=== PATIENT | male | born 1930 | race Caucasian/White ===

== ENCOUNTER 2017-06-01 11:19 | Inpatient (IN) ==
--- NOTE | 2017-05-31 16:59 | Discharge Summary ---
<Trixie Grady E - Last Filed: 05/31/17 16:55> Date of Encounter: 05/31/17 - Discharge Diagnosis (1) Rotator cuff arthropathy of left shoulder Priority: Primary Status: Chronic (2) HLD (hyperlipidemia) Priority: Secondary Status: Chronic Qualifiers: Hyperlipidemia type: unspecified Qualified Code(s): E78.5 - Hyperlipidemia , unspecified (3) HTN (hypertension) Priority: Secondary Status: Chronic Qualifiers: Hypertension type: unspecified Qualified Code(s): I10 - Essential (primary ) hypertension (4) COPD (chronic obstructive pulmonary disease) Priority: Secondary Status: Chronic Qualifiers: COPD type: unspecified COPD Qualified Code(s): J44.9 - Chronic obstructive pulmonary disease, unspecified (5) Status post aortic valve replacement Priority: Secondary Status: Chronic (6) Anemia Priority: Secondary Status: Chronic Qualifiers: Anemia type: unspecified type Qualified Code(s): D64.9 - Anemia, unspecified (7) GERD (gastroesophageal reflux disease) Priority: Secondary Status: Chronic Qualifiers: Esophagitis presence: esophagitis presence not specified Qualified Code(s) : K21.9 - Gastro-esophageal reflux disease without esophagitis (8) 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 [Rx] OxyCODONE Immed Rel [Roxicodone 5 MG] 5 mg PO Q6HR PRN 7 Days #28 tablet [Rx] Albuterol Sulfate [Ventolin Hfa] 2 puff IH Q4-6H PRN 06/01/17 [History] Amlodipine Besylate 2.5 mg PO DAILY 06/01/17 [History] Aspirin 81 mg PO DAILY 06/01/17 [History] Atorvastatin [Lipitor] 40 mg PO HS 06/01/17 [History] Doxazosin [Cardura] 4 mg PO HS 06/01/17 [History] Finasteride [Proscar] 5 mg PO DAILY 06/01/17 [History] Ibuprofen [Motrin] 200 - 400 mg PO Q4HR PRN 06/01/17 [History] Latanoprost [Xalatan] 1 drop OP HS 06/01/17 [History] Allergies/Adverse Reactions: 3 Allergy/AdvReac Type Severity Reaction Status Date / Time diphenhydramine Allergy Hives Verified 06/01/17 11:59 [From Benadryl] naproxen [From Aleve] Allergy Hives Verified 06/01/17 11:59 Penicillins Allergy Hives Verified 06/01/17 11:59 red dye Allergy Hives Verified 06/01/17 11:59 Primary care physician: Joanne Collier, - Patient Status Disposition: Home, Self-Care Condition: Good - Discharge Instructions Follow Up With: Joanne Collier MD [Primary Care Provider] - - Hospital Course Hospital course: Mr. Cochran is a 87 year old male - Time Spent with Patient Total time spent providing and/or coordinating discharge services: <Estuardo Prado - Last Filed: 06/02/17 07:15> Date of Encounter: 06/02/17 Time of Encounter: 07:14 - Discharge Diagnosis (1) Status post reverse total replacement of left shoulder Priority: Primary Status: Acute (2) Rotator cuff arthropathy of left shoulder Priority: Primary Status: Chronic (3) HLD (hyperlipidemia) Priority: Secondary Status: Chronic Qualifiers: Hyperlipidemia type: unspecified Qualified Code(s): E78.5 - Hyperlipidemia , unspecified (4) HTN (hypertension) Priority: Secondary Status: Chronic Qualifiers: Hypertension type: unspecified Qualified Code(s): I10 - Essential (primary ) hypertension (5) COPD (chronic obstructive pulmonary disease) Priority: Secondary Status: Chronic Qualifiers: COPD type: unspecified COPD Qualified Code(s): J44.9 - Chronic obstructive pulmonary disease, unspecified (6) Status post aortic valve replacement Priority: Secondary Status: Chronic (7) Anemia Priority: Secondary Status: Chronic Qualifiers: Anemia type: unspecified type Qualified Code(s): D64.9 - Anemia, unspecified (8) GERD (gastroesophageal reflux disease) Priority: Secondary Status: Chronic Qualifiers: Esophagitis presence: esophagitis presence not specified Qualified Code(s) : K21.9 - Gastro-esophageal reflux disease without esophagitis (9) 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 Cochran is a 87 year old male Status post left total shoulder replacement reverse The patient had an uneventful postoperative course. They received antibiotics and physical therapy and were discharged in stable condition. There will follow -up in the office in 2 weeks. - Time Spent with Patient Total time spent providing and/or coordinating discharge services:
--- NOTE | 2017-05-31 20:56 | Physician Discharge Referral ---
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 For more information, call the [place] Tobacco Quit Line at 1-991-OBLC-NOW. - Dressing/Wound Care Site: left shoulder Type of Dressing/Treatments w/Frequency: Opsite placed. Keep dressing intact until first follow up appointment. If > 50% saturated, notify office, remove dressing and place appropriate dressing back in place. Leave Zipline intact. Opsite dressing is water resistant, not water- proof. OK to shower, but do not get dressing wet. - Diet/Nutrition Diet/Nutrition Orders: Regular - Activity Activity Orders: Up ad ramandeep, Ambulate, Chair Activity: List: PT/OT. NWB to affected upper extremity. Follow Shoulder Precautions x 6 weeks. Stay in brace during activity and at night. Remove brace during exercises. ICE and elevate extremity frequently throughout the day. - Services Needed Following services are medically necessary services: Nursing, Home Health Aide, Physical Therapy, Occupational Therapy - Transfer Medications Prescriptions: OxyCODONE Immed Rel [Roxicodone 5 MG] 5 mg PO Q6HR PRN 7 Days #28 tablet PRN Reason: Pain Aspirin Enteric Coated [Aspirin EC] 325 mg PO DAILY 21 Days #21 tablet. Home Medications: levoFLOXacin [Levaquin] 750 mg PO DAILY #10 tablet 12/23/16 [Rx] Aspirin Enteric Coated [Aspirin EC] 325 mg PO DAILY 21 Days #21 tablet. [Rx] OxyCODONE Immed Rel [Roxicodone 5 MG] 5 mg PO Q6HR PRN 7 Days #28 tablet [Rx] Allergies/Adverse Reactions: 3 Allergy/AdvReac Type Severity Reaction Status Date / Time diphenhydramine Allergy Anaphylaxis Verified 12/23/16 12:47 [From Benadryl] Penicillins Allergy Anaphylaxis Verified 12/23/16 12:47 red dye Allergy Anaphylaxis Verified 12/23/16 12:47 Certification: Further, I certify that my clinical findings support that this patient is homebound (i.e. absences from home require considerable and taxing effort and are for medical reasons or cheondoism services or infrequently or short duration when for other reasons) because: Homebound Reason: Post-surgery restriction and or conditions limit ability to leave home Attestation: My signature below is to certify that this patient is under my care and that I, or nurse practitioner, or a physician respiratory equipment assistant working with me, has a face-to- face encounter with this patient.
[2017-06-01] MEDS ORDERED: Albuterol 2.5 MG/3 ML NEBULIZER IH ONE ×2 (11:50→16:34)
[2017-06-01] MEDS ORDERED: Ringers Solution, Lactated 1,000 ML IVC SCH ×3 (12:00→19:40)
[2017-06-01] MEDS ORDERED: Clindamycin 900 MG/50 ML 900 MG/50 ML IV.SOLN IVPB ONE (12:30)
--- NOTE | 2017-06-01 12:44 | History & Physical Report ---
Date of Encounter: 06/01/17 Time of Encounter: 12:43 24 Hour HP Update - Instructions Instructions: If the History and Physical is less than 30 days old and was completed prior to A.M. admission and or procedure and has NOT been updated on calendar day of procedure please complete this update prior to performing procedure. - Update Patient reports changes in Medical Condition: No Changes in examination, assessment, or condition: No Changes in Medication: No Preop tests/diagnostics Reviewed: Yes Surgery Remains Indicated: Yes Consent for Planned Operative Procedure(s) Verified: Yes - Pre-Operative Checklist Preoperative Checklist Indicated: No Prophylactic Antibiotic Ordered: Yes Is VTE Prophylaxis Indicated?: Yes
--- NOTE | 2017-06-01 13:26 | Anesthesia Evaluation PreOp ---
Date of Encounter: 06/01/17 Time of Encounter: 13:24 - Past History Planned Operation: Left Total Shoulder Cardiac History: Hyperlipidemia Pulmonary History: COPD Other Medical History: GERD, Other (Glaucoma) Alcohol Use: none Drug use: none Medications and Allergies Aspirin Enteric Coated [Aspirin EC] 325 mg PO DAILY 21 Days #21 tablet. [Rx] OxyCODONE Immed Rel [Roxicodone 5 MG] 5 mg PO Q6HR PRN 7 Days #28 tablet [Rx] Albuterol Sulfate [Ventolin Hfa] 2 puff IH Q4-6H PRN 06/01/17 [History] Amlodipine Besylate 2.5 mg PO DAILY 06/01/17 [History] Aspirin 81 mg PO DAILY 06/01/17 [History] Atorvastatin [Lipitor] 40 mg PO HS 06/01/17 [History] Doxazosin [Cardura] 4 mg PO HS 06/01/17 [History] Finasteride [Proscar] 5 mg PO DAILY 06/01/17 [History] Ibuprofen [Motrin] 200 - 400 mg PO Q4HR PRN 06/01/17 [History] Latanoprost [Xalatan] 1 drop OP HS 06/01/17 [History] 3 Allergy/AdvReac Type Severity Reaction Status Date / Time diphenhydramine Allergy Hives Verified 06/01/17 11:59 [From Benadryl] naproxen [From Aleve] Allergy Hives Verified 06/01/17 11:59 Penicillins Allergy Hives Verified 06/01/17 11:59 red dye Allergy Hives Verified 06/01/17 11:59 - Meds/Allergy Pre-op Review Medications Reviewed: Yes Allergies Reviewed: Yes Beta Blockers on Current Med List: No Anesthesia Results - Labs Laboratory Tests 05/19/17 05/19/17 05/19/17 14:30 14:30 14:30 WBC 7.4 Hgb 12.7 L Hct 37.0 L Plt Count 244 INR 1.1 Sodium 140 Potassium 4.2 Chloride 107 Carbon Dioxide 28 BUN 15 Creatinine 0.92 - Imaging EKG: report reviewed (SINUS RHYTHM INCOMPLETE RIGHT BUNDLE BRANCH BLOCK) Anesthesia Exam O2 Sat Height 1.8 m Height 1.8 m Weight 93.44 kg Weight 93.44 kg O2 Sat by Pulse Oximetry 98 O2 Sat by Pulse Oximetry 98 Vital Signs Temp Pulse Resp BP Pulse Ox 98.5 F 67 18 173/85 98 06/01/17 11:56 06/01/17 11:56 06/01/17 11:56 06/01/17 11:56 06/01/17 11:56 - HEENT Pupil (Motor): Pupils equal, EOMI - DUST COLLECTOR ATTENDANT LOC: Oriented DUST COLLECTOR ATTENDANT Motor: Normal RUE, Normal LUE, Normal RLE, Normal LLE, Normal Face DUST COLLECTOR ATTENDANT Sensory: Normal: RUE, LUE, RLE, LLE, Face - Cardiac Rhythm: Regular Murmur: None JVD: No Carotid Bruit: No - Pulmonary Breath Sounds: bilateral Clear Respiratory Effort: Symmetrical Anesthesia Assess/Plan ASA Score: 3 Modified Hemanth Scale for Level of Consciousness: Cooperative, oriented, and tranquil Anesthetic Plan: General, Regional Autologous Blood: Yes Monitoring Plan: Standard Monitors Recovery Plan: PACU
[2017-06-01] MEDS ORDERED: Lidocaine -MPF 2% 2 ML VIAL ONE (14:23)
[2017-06-01] MEDS ORDERED: *HR* Propofol 200 MG/20 ML VIAL IVP ONE (14:23)
[2017-06-01] MEDS ORDERED: *HR* Midazolam HCl 2 MG/2 ML VIAL ONE (14:23)
[2017-06-01] MEDS ORDERED: *HR* FentaNYL (PF) 100 MCG/2 ML VIAL ONE (14:23)
[2017-06-01] MEDS ORDERED: Ondansetron 4 MG/2 ML VIAL ONE (14:23)
[2017-06-01] MEDS ORDERED: Dexamethasone 4 MG/ML VIAL ONE (14:23)
[2017-06-01] MEDS ORDERED: *HR* Succinylcholine 200 MG/10 ML VIAL IVP ONE (14:25)
[2017-06-01] MEDS ORDERED: Lidocaine -MPF 4% 5 ML AMPUL ONE (14:25)
[2017-06-01] MEDS ORDERED: ROPIVACAINE HCL/PF 0.5% 30 ML VIAL ONE (15:57)
--- NOTE | 2017-06-01 16:17 | Anesthesia Procedures ---
Date of Encounter: 06/01/17 Time of Encounter: 14:05 Procedures: Anesthesia - Nerve Block Procedure Date: 06/01/17 Time: 14:05 Allergies/Adv Reactions: benadryl, naproxyn PCN Pre-op Diagnosis: Left Shoulder Arthritis Surgical Procedure: Left Total Shoulder Arhtroplasty Checklist: Correct Patient Identifier, Correct procedure, History checked Correct side: Left Blood Thinner: No Monitor Applied: EKG, BP, Pulse Oximetry Supplemental Oxygen via Nasal Cannula (L/min): 2 Sedation: Versed (mg): 2 Sedation: Fentanyl (mcg): 1 Indication: Post Op Analgesia Pre-op Neuro Deficits: No Block Type: Supraclavicular Catheter placed: No Sterile Technique: Yes Ultrasound used: Yes Anatomy identified: Yes Visual spread of Local: Yes Neuro Stimulation: No Blood on Needle Aspiration: No Smooth Injection of Local: Yes Prep: Chlorhexadine Needle: 22 x 50 mm Stimuplex (50 mm echogenic ) Local: Ropivacaine (0.5% ) Volume (cc): 30 Number of Attempts: 1 Complications: None/effective block Vitals: VSS throughout procedure
[2017-06-01] MEDS ORDERED: Ondansetron 4 MG/2 ML VIAL IVP ONE (16:34)
[2017-06-01] MEDS ORDERED: *HR* HYDROmorphone (PF) 1 MG/ML SYRINGE IVP PRN (16:34)
[2017-06-01] MEDS ORDERED: Naloxone 0.4 MG/ML INJ IVP PRN ×2 (16:34→19:40)
[2017-06-01] MEDS ORDERED: EPHEDrine 50 MG/ML VIAL ONE (16:57)
--- NOTE | 2017-06-01 17:06 | Orthopedic Operative Note ---
Date of procedure: 06/01/17 Pre-op diagnosis: Left shoulder cuff tear arthropathy Post-op diagnosis: same Procedure: Procedure: Total Shoulder Replacment Reverse, left Estimated blood loss: 100 cc Hardware: Metal and polyethylene replacement: Arthrex large glenoid baseplate, 2 4.5 screws. 1 6.5 screw, 42+4 glenosphere, 14 humeral stem, poly insert 3 Exam Under anesthesia: Restricted motion in all planes Procedural Notes: Irreparable tear supraspinatus tendon grade 4 arthritic changes humeral head and glenoid socket. Operative procedure: The patient was brought to the operating room and placed on the operating room table. After general anesthesia was administered the operative shoulder was examined. Findings were noted. The patient was placed in the modified beachchair position. All pressure points were padded appropriately. And the head was stabilized in the neutral position. The operative extremity was prepped and draped in the sterile surgical fashion. The patient received IV antibiotics prior to skin incision. A standard deltopectoral approach was made to the operative shoulder. Incision was made to the skin and subcutaneous tissue,hemo stasis was obtained with Bovie cautery. Using careful blunt dissection the cephalic vein was identified and mobilized medially. The deltopectoral interval was developed and the clavipectoral fascia was incised. The subscap was released off the lesser tuberosity and tagged with #2 FiberWire suture subscap was irreparable. The humerus was dislocated patient noted to have irreparable tear supraspinatus tendon, and the humeral cut was made along the anatomic neck. Patient noted to have grade 4 arthritic changes humeral head. Osteophytes off the inferior neck were removed as well. Anterior and posterior Bankart retractors were placed to expose the glenoid. Patient noted to have grade 43 changes glenoid socket. The glenoid guide was seated and the centering hole was made. It was reamed with the appropriate reamer. The large baseplate was seated and secured with ( 2) 4.5 screws and one 6.5 screw. The baseplate was irrigated and dried and the 42+4 Glenosphere was seated and secured with the Marroquin taper. The Marroquin taper was tested and found to be secure the humerus was redislocated and prepared with the diaphyseal reamers, followed by a broaching process up to the appropriate size 14 in the patient's anatomic version. The metaphyseal reamer was then utilized. Trial reduction found the shoulder to be relocatable. Trial components were removed , the 14 stem was impacted in place in the patient's anatomic version. Trial reduction found the shoulder to be relocatable and stable with the appropriate 3. Trial component was removed and the real 3 Daria was seated and secured the shoulder was reduced. The shoulder had excellent motion and excellent stability and no evidence of dislocation. The deep tissue was irrigated with pulse irrigation. The shoulder was closed by the PA. The deltopectoral interval was closed with a running #1 PDS suture, subcutaneous tissue was irrigated and closed with 0 PDS suture, the skin was closed with Dermabond. The patient was placed in a sterile dressing, abduction brace and extubated. The patient was then transferred to the recovery room in stable condition. Anesthesia: GETA Surgeon: Estuardo Prado Was there an child development assistant present: No Estimated blood loss (cc): 100 Condition: stable Disposition: PACU
[2017-06-01 17:48] LABS: Hematocrit 32.4 % (37.5-50.1)
[2017-06-01] MEDS ORDERED: *HR* Enoxaparin 30 MG/0.3 ML SYRINGE SQ SCH (18:00)
--- NOTE | 2017-06-01 18:07 | Anesthesia Evaluation Post Op ---
Date of Encounter: 06/01/17 Time of Encounter: 18:06 - Vital Signs Vital Signs: Vital Signs/O2 Sat, Most Current Temp Pulse Resp BP Pulse Ox 97.5 F L 67 16 147/77 94 06/01/17 17:50 06/01/17 17:50 06/01/17 17:50 06/01/17 17:50 06/01/17 17:50 - Lungs Lungs: Clear Ascult./Percussion - Airway Airway: Non-obstructed - Cardiovascular Regular Rate - Mental Status Mental Status: Alert & Oriented, Answers Appropriately - Pain Pain Scale: 0 Pain Scale used: Numeric (1 - 10) - Nausea Vomiting Nausea Vomiting: Not Present - Hydration Hydration: NPO, Has not voided - Discharge PostOp Status: Transfer Patient to floor
[2017-06-01] MEDS ORDERED: *HR* OxyCODONE Immed Rel 15 MG TABLET PO PRN (19:40)
[2017-06-01] MEDS ORDERED: MOM Conc 10 ML UD.LIQ PO PRN (19:40)
[2017-06-01] MEDS ORDERED: Sennosides 8.6 MG TABLET PO PRN (19:40)
[2017-06-01] MEDS ORDERED: Temazepam 15 MG CAPSULE PO PRN (19:40)
[2017-06-01] MEDS ORDERED: *HR* OxyCODONE Immed Rel 5 MG TABLET PO PRN (19:40)
[2017-06-01] MEDS: Clindamycin 900 MG/50 ML 900 MG/50 ML IV.SOLN IVPB SCH (21:19)
[2017-06-02 05:31] LABS: Hematocrit 33.3 % (37.5-50.1); Hemoglobin 11.3 g/dL (12.9-16.9)
[2017-06-02] MEDS ORDERED: *HR* Enoxaparin 30 MG/0.3 ML SYRINGE SQ SCH (06:00)
--- NOTE | 2017-06-02 07:16 | Orthopedics Progress Note ---
Date of Encounter: 06/02/17 Time of Encounter: 07:15 - Assessment and Plan (1) Status post reverse total replacement of left shoulder Current Visit: Yes Status: Acute (2) Rotator cuff arthropathy of left shoulder Current Visit: No Status: Chronic (3) HLD (hyperlipidemia) Current Visit: No Status: Chronic Qualifiers: Hyperlipidemia type: unspecified Qualified Code(s): E78.5 - Hyperlipidemia , unspecified (4) HTN (hypertension) Current Visit: No Status: Chronic Qualifiers: Hypertension type: unspecified Qualified Code(s): I10 - Essential (primary ) hypertension (5) COPD (chronic obstructive pulmonary disease) Current Visit: No Status: Chronic Qualifiers: COPD type: unspecified COPD Qualified Code(s): J44.9 - Chronic obstructive pulmonary disease, unspecified (6) Status post aortic valve replacement Current Visit: No Status: Chronic (7) Anemia Current Visit: No Status: Chronic Qualifiers: Anemia type: unspecified type Qualified Code(s): D64.9 - Anemia, unspecified (8) GERD (gastroesophageal reflux disease) Current Visit: No Status: Chronic Qualifiers: Esophagitis presence: esophagitis presence not specified Qualified Code(s) : K21.9 - Gastro-esophageal reflux disease without esophagitis (9) 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 Afebrile vital signs stable. Operative extremity: Neurovascularly intact Dressing clean dry and intact Calves nontender Assessment and plan: Continue with postoperative care Hematocrit 33 discharge today Objective Vital signs: Vital Signs Temp Pulse Resp BP Pulse Ox 06/02/17 06:50 98.3 F 70 18 133/66 93 06/02/17 03:55 98.1 F 63 17 145/73 98 06/01/17 23:43 97.5 F L 68 18 143/78 95 06/01/17 22:15 98.4 F 48 16 108/68 96 06/01/17 21:15 98.2 F 68 16 115/65 96 06/01/17 20:15 98.2 F 62 14 117/78 96 06/01/17 19:45 98.0 F 78 16 122/88 98 06/01/17 19:18 97.4 F L 60 16 153/80 93 06/01/17 19:15 97.8 F 78 16 125/84 98 06/01/17 18:00 97.5 F L 62 18 159/83 94 06/01/17 17:50 97.5 F L 67 16 147/77 94 06/01/17 17:40 73 12 147/85 93 06/01/17 17:30 75 18 155/78 93 06/01/17 17:20 98.4 F 85 20 137/72 94 06/01/17 15:45 62 176/82 98 06/01/17 12:18 18 173/85 98 06/01/17 11:56 98.5 F 67 18 173/85 98 Intake and Output 06/01/17 06/01/17 06/02/17 15:59 23:59 07:59 Output Total 100 / 100 200 / 200 Balance -100 / -100 -200 / -200 Output: Urine 0 / 0 200 / 200 Estimated Blood Loss 100 / 100 Other: Weight 93.44 kg - Labs CBC & BMP: 06/02/17 04:43 Labs: Abnormal lab results Hgb 11.3 g/dL (12.9-16.9) L 06/02/17 04:43 Hct 33.3 % (37.5-50.1) L 06/02/17 04:43 - VTE Documentation of Mechanical Device: Venous foot pump, device Consult Discharge Plan - Plan Referrals: Joanne Collier MD [Primary Care Provider] -
[2017-06-02] MEDS ORDERED: Clindamycin 900 MG/50 ML 900 MG/50 ML IV.SOLN IVPB SCH (08:00)
[2017-06-02] MEDS: Ondansetron 4 MG/2 ML VIAL IVP PRN (08:31)
[2017-06-02] MEDS ORDERED: *HR* Promethazine 25 MG/ML VIAL ONE (08:45)
[2017-06-02] MEDS ORDERED: 0.9 % Sodium Chloride 1,000 ML IVC SCH (08:45)
[2017-06-02] MEDS ORDERED: *HR* Promethazine 25 MG/ML VIAL IVP ONE (08:50)
[2017-06-02] MEDS: Finasteride 5 MG TABLET PO SCH (09:00)
[2017-06-02] MEDS ORDERED: Pantoprazole 80 MG in 0.9 % Sodium Chloride 250 ML IVC SCH (09:00)
[2017-06-02] MEDS: Aspirin 81 MG TAB.CHEW PO SCH (09:00)
[2017-06-02] MEDS: amLODIPine 5 MG TABLET PO SCH (09:00)
--- NOTE | 2017-06-02 09:06 | Event Note ---
<Kenyon Evans - Last Filed: 06/02/17 13:16> Date of Encounter: 06/02/17 Time of Encounter: 09:06 Rapid response notes: Rapid response was called to Mr. Keenan room at 8:30 AM where he was found to be poorly responsive sitting up in his chair at bedside, blood pressure at bedside was 54/40, heart rate 48. Upon initial evaluation is done to be bradycardic poorly responsive and vomited while sitting up straight with potential aspiration. He was moved to the bed after which he was more responsive able to tell us his name date of but continued to have vomiting episodes. He was given 1 L IV lactated Ringer's and [place] in for his vomiting. His initial vomitus was bilious in nature but with continued retching he started to develop stevie red blood in his vomit. Repeat blood pressure systolically 146, heart rate 75 on heart monitor. EKG was performed demonstrating normal sinus rhythm without any ST depressions or elevations. Stat labs were obtained for CBC, CMP, troponin and lactic acid. - Physical exam demonstrated 87-year-old male that was pale in color, actively vomiting. Left upper extremity in a sling postoperative left shoulder replacement. Chest was asymmetric with crepitus palpation of his left pectoralis major and infraclavicular region. Respiratory rate was appropriate, diffuse wheezing with rhonchi in left lower lung base. Abdomen is soft nontender palpation positive bowel sounds extremities were pale, pulses were 2+ in all 4 limbs. Patient spontaneously moving all 4 limbs and answering questions appropriately. - Stat chest x-ray was performed that demonstrated left-sided small pleural effusion and diffuse pulmonary vasculature correlating with pulmonary edema. - <Mary Torres - Last Filed: 06/02/17 16:35> Date of Encounter: 06/02/17 examined this patient and my medical decision-making was reviewed with the Resident Physician. I agree with the documented findings, disposition and treatment plan as described except to the extent set forth below: Patient is 87 year old male here for shoulder revision surgery. He developed episode of hypotension, likely vasovagal episode. He had several episodes of NB /NB emesis but later emesis was thin liquid with stevie blood. Hypotension resolved with IVF. N/V resolved but nursing reported he had about 500 ml of bloody emesis. - Continue IVF - Consult GI - Place patient on ppi drip - Monitor vitals closely, currently no longer any sign of active bleed - continue telemetry monitoring. Currently NSR with occasional PVCs. I discussed case with GI, EGD planned for tomorrow. Medicine Consult note to follow.
[2017-06-02 09:18] LABS: Basophils % 0.1 %; Hematocrit 30.4 % (37.5-50.1); Hemoglobin 10.4 g/dL (12.9-16.9); Immature Granulocytes % 0.4 % (0-4); Lymphocytes # 1.9 K/mcL (0.6-4.6); Lymphocytes % 15.7 %; Mean Corpuscular HGB Conc 34.2 g/dL (31.6-35.5); Mean Corpuscular Hemoglobin 31.2 pg (28.0-33.3); Mean Corpuscular Volume 91.3 fL (83.0-100.0); Mean Platelet Volume 9.7 fL (9.4-12.4); Monocytes # 0.6 K/mcL (0.0-1.3); Neutrophils # 9.6 K/mcL (1.6-8.9); Platelet Count 206 K/mcL (140-400); Red Blood Count 3.33 M/mcL (4.19-5.50); Red Cell Distribution Width 12.1 % (11.5-14.5); Segmented Neutrophils % 78.8 %
[2017-06-02] MEDS: Clindamycin 900 MG/50 ML 900 MG/50 ML IV.SOLN IVPB SCH (09:32)
[2017-06-02 09:52] LABS: Alanine Aminotransferase 12 Units/L (7-52); Albumin 3.2 g/dL (3.5-5.7); Albumin/Globulin Ratio 1.3 (1.1-2.2); Alkaline Phosphatase 42 Units/L (34-104); Aspartate Amino Transferase 16 Units/L (13-39); BUN/Creatinine Ratio 19 (6-26); Bilirubin,Total 1.7 mg/dL (0.3-1.0); Blood Urea Nitrogen 18 mg/dL (8-23); Calcium 8.2 mg/dL (8.6-10.3); Carbon Dioxide 22 mEq/L (23-29); Chloride 106 mEq/L (98-107); Globulin 2.5 g/dL (2.4-3.5); Glucose 183 mg/dL (70-105); Magnesium 1.9 mg/dL (1.6-2.6); Osmolality,Calculated 297 (280-300); Phosphorous 3.5 mg/dL (2.7-4.5); Sodium 140 mEq/L (136-145); Total Protein 5.7 g/dL (6.4-8.9); eGFR For African Americans > 60 (> 60); eGFR For Non-African Americans > 60 (> 60)
[2017-06-02] MEDS: Pantoprazole 40 MG in 0.9 % Sodium Chloride Mini Bag 100 ML IVC SCH ×3 (10:48→20:36)
[2017-06-02] MEDS: Cefepime HCl 2,000 MG in Water for inj. (sterile) 20 ML IVP SCH ×2 (10:49→20:19)
--- NOTE | 2017-06-02 11:15 | Gastroenterology Consult Note ---
<Kiya Tolbert - Last Filed: 06/02/17 11:12> Date of Encounter: 06/02/17 Time of Encounter: 10:50 - Assessment and plan (1) Anemia Current Visit: No Status: Chronic Assessment and plan: Pt had syncopal episode and hypotension this morning. He also had vomiting large amount dark brown emesis. Hgb dropped from 11-10.4. He also had some subcutaneous emphesema to left shoulder and had stat CT chest. Will schedule for EGD tomorrow to rule out bleeding ulcer, MW tear. Qualifiers: Anemia type: unspecified type Qualified Code(s): D64.9 - Anemia, unspecified (2) Status post total replacement of left shoulder Current Visit: No Status: Acute - Time Spent With Patient Total time spent is greater than 50% in coordination of care (as documented) at patient's floor/unit and/or counseling patient: GI History of Present Illness - Data of Consult Patient: new to practice Consult date: 06/02/17 Requesting Physician: Estuardo Prado MD - Consult Narrative Reason for consult: hematemesis, anemia History of present illness: 87 year old male with a pmhx of COPD, hyperlipidemia, CAD and HTN. He is status post left shoulder replacement surgery. He was helped up into the chair this morning, after sitting up for a while he had syncopal episode and was hypotensive at that time. He was given narcan and then vomited large amount of dark coffee ground emesis. He has a history of porcine valve replacement and denies anticoagulants but is on asa at home and was also started on lovenox post -op. Crepitus was noted in the left chest and shoulder area and CT chest was done stat which showed soft tissue gas centered about the left shoulder the patient has undergone recent reverse left shoulder replacement surgery. The gas in the soft tissues is most likely postoperative. At this time the patient is alert and oriented. He complains of intermittent gastric reflux and burning in his stomach which was worse before vomiting this morning. He also complains of some nausea. He denies any bloody, dark or tarry stools. EGD: denies Colonoscopy: 2017 [facility], (normal per pts reports) NSAIDS: baby asa anticoagulants: denies Past Med Surg Social Fam HX - Past Medical History Medical history: COPD, GERD, glaucoma, hyperlipidemia, hypertension Psychiatric history: no psych history - Past Surgical History Surgical History: heart valve replacement - Social History Smoking Status: Never smoker Smokeless Tobacco Status: No Alcohol use: none Drug use: none - Family History Mother Name: Katy Cochran Living Status: Age at : 92 Hx Family Cancer: Yes (throat cancer) Father Name: Kyaw Cochran Living Status: Age at : 78 Cause of : PNE Review of Systems: GI: as per BLACKFEET GENERAL: denies fever, has some chills EYES: denies yellow discoloration ENT: denies pain with swallowing or difficulty swallowing CARDIO: denies chest pain, palpitations RESP: No Shortness of breath with exertion : denies change in color of urine NEURO: denies any weakness HEME: Denies any bruising MS: denies joint pain, joint swelling or back pain. DERM: denies rash or itching PSYCH: Denies history of anxiety or depression - Constitutional Vitals: Temp Pulse Resp BP Pulse Ox 98.3 F 70 18 133/66 93 06/02/17 06:50 06/02/17 06:50 06/02/17 06:50 06/02/17 06:50 06/02/17 06:50 Exam: CONSTITUTIONAL:~alert, no acute distress.~HEAD:~normocephalic.~EYES:~no jaundice.~NECK:~no obvious swelling.~HEART:~regular rate and rhythm, no murmurs. ~LUNGS:~bilateral good air entry.~ABDOMEN:~non distended, soft, non tender, no masses palpable, no organomegaly.~RECTAL EXAM:~Deferred.~EXTREMITIES:~no clubbing, cyanosis, trace BLE edema, LUE in sling, dressing to left shoulder D/I , small amount of subcutaneous emphysema noted.~SKIN:~no stigmata of chronic liver disease.~NEUROLOGIC:~no obvious focal defect.~~~~ Results - Labs CBC & Chem 7: 06/02/17 08:59 06/02/17 08:59 Labs: Last Result Calcium 8.2 mg/dL (8.6-10.3) L 06/02/17 08:59 Troponin I < 0.03 ng/mL (< 0.04) 06/02/17 08:59 Gastric Occult Blood Positive (Negative) A 06/02/17 09:00 Entire Visit Hgb 10.4 g/dL (12.9-16.9) L 06/02/17 08:59 Hct 30.4 % (37.5-50.1) L 06/02/17 08:59 Total Bilirubin 1.7 mg/dL (0.3-1.0) H 06/02/17 08:59 AST 16 Units/L (13-39) 06/02/17 08:59 ALT 12 Units/L (7-52) 06/02/17 08:59 - Impressions Impressions Shoulder X-Ray 06/01/17 00:00 IMPRESSION: 1. Status post uncomplicated shoulder arthroplasty. D/ / Rodger Quintanilla MD / Rodger Quintanilla MD Interpreting Provider: Rodger Quintanilla MD Chest X-Ray 06/02/17 08:30 IMPRESSION: Small bilateral pleural effusions and bibasilar opacities, new on the left. Edema versus infection. D/ / Hayley Wood MD / Hayley Wood MD Interpreting Provider: Hayley Wood MD Chest CT 06/02/17 09:31 IMPRESSION: Minimal bibasilar atelectasis with sequela of prior granulomatous disease. Two nodules measuring less than 6 mm in the right upper lobe. Soft tissue gas centered about the left shoulder and the patient has undergone recent reverse left shoulder replacement surgery. The gas in the soft tissues is most likely postoperative. No discrete fluid collection/abscess is suggested. Small sliding hiatal hernia. Anemia. RECOMMENDATIONS: Fleischner Society guidelines for follow-up and management of incidentally detected pulmonary nodules: Multiple Solid Nodules: Nodule size less than 6 mm In a low-risk patient, no routine follow-up. In a high-risk patient, optional CT at 12 months. - Low risk patients include individuals with minimal or absent history of smoking and other known risk factors. - High risk patients include individuals with a history or smoking or known risk factors. Radiology 2017 http://pubs.rsna.org/doi/full/10.1148/radiol.8573909183 D/ / 06/02/2017 11:00:40 James Arana MD / [email or web address] Interpreting Provider: James Arana MD Consult Discharge Plan - Plan Referrals: Joanne Collier MD [Primary Care Provider] - <Sebastian Man - Last Filed: 06/03/17 13:49> Date of Encounter: 06/02/17 - Time Spent With Patient Total time spent is greater than 50% in coordination of care (as documented) at patient's floor/unit and/or counseling patient: GI History of Present Illness - Data of Consult Requesting Physician: Estuardo Prado MD - Consult Narrative History of present illness: Mr. Cochran is a 87 year old male - Constitutional Vitals: Temp Pulse Resp BP Pulse Ox 99.0 F 110 18 132/62 98 06/03/17 10:53 06/03/17 10:53 06/03/17 10:53 06/03/17 10:53 06/03/17 10:53 Results - Labs CBC & Chem 7: 06/03/17 06:27 06/02/17 08:59 Labs: Last Result Calcium 8.2 mg/dL (8.6-10.3) L 06/02/17 08:59 Troponin I < 0.03 ng/mL (< 0.04) 06/02/17 08:59 Gastric Occult Blood Positive (Negative) A 06/02/17 09:00 Entire Visit Hgb 9.1 g/dL (12.9-16.9) L 06/03/17 06:27 Hct 26.7 % (37.5-50.1) L 06/03/17 06:27 Total Bilirubin 1.7 mg/dL (0.3-1.0) H 06/02/17 08:59 AST 16 Units/L (13-39) 06/02/17 08:59 ALT 12 Units/L (7-52) 06/02/17 08:59 - Attending Attestation I have personally performed a face to face evaluation on this patient. I have reviewed and agree with the care plan. History and Exam by me shows:UGI bleeding most likely etiology of coffee ground emesis. Multifactorial Post left shoulder surgery. Questionable history of syncope and ?crepitus in left chest. Recommend CT agree and then EGD once issue with chest resolved.
[2017-06-02] MEDS: *HR* OxyCODONE Immed Rel 5 MG TABLET PO PRN ×2 (13:16→20:19)
[2017-06-02 14:51] LABS: Hemoglobin 10.1 g/dL (12.9-16.9)
[2017-06-02] MEDS ORDERED: Cefepime HCl 2,000 MG in D5% in Water (Mini-Bag+) 100 ML IVPB SCH (16:00)
--- NOTE | 2017-06-02 16:57 | Internal Medicine Consult Note ---
Date of Encounter: 06/02/17 Time of Encounter: 16:55 - Assessment and Plan (1) Rotator cuff arthropathy of left shoulder Current Visit: No Status: Chronic Assessment and plan: Management per Orthopedic Surgery (2) Vasovagal episode Current Visit: Yes Status: Acute Assessment and plan: Likely caused from vomiting that he had during the morning. Symptomatically treated with IV and Zofran as needed. Fall precautions, patient bed rest for now. (3) Hypotension Current Visit: Yes Status: Acute Assessment and plan: Likely vasovagal and post op state. Patient BP immediately returned to 140s/ 70s shortly after. Patient did have nausea with vomiting, which was most likely cause of episode. Continue IV fluids and neuro checks. Patient reassessed several times during day, no such recurring episodes of hypotension. Qualifiers: Hypotension type: unspecified hypotension type Qualified Code(s): I95.9 - Hypotension, unspecified (4) Hematemesis with nausea Current Visit: Yes Status: Acute Assessment and plan: Gastric occult positive, H&H stable, will trend. Hemodynamically stable currently. Continue ppi drip GI consulted EGD in AM CLD, NPO at midnight. (5) HLD (hyperlipidemia) Current Visit: No Status: Chronic Qualifiers: Hyperlipidemia type: unspecified Qualified Code(s): E78.5 - Hyperlipidemia , unspecified (6) HTN (hypertension) Current Visit: No Status: Chronic Assessment and plan: Hold hypertension medication since patient was hypotensive. Okay to resume if patient becomes hypertensive without any hemodynamic instability. Qualifiers: Hypertension type: unspecified Qualified Code(s): I10 - Essential (primary ) hypertension (7) COPD (chronic obstructive pulmonary disease) Current Visit: No Status: Chronic Assessment and plan: No respiratory distress or exacerbation. Qualifiers: COPD type: unspecified COPD Qualified Code(s): J44.9 - Chronic obstructive pulmonary disease, unspecified (8) Aspiration pneumonia due to vomit Current Visit: Yes Status: Acute Assessment and plan: Patient with vomiting and syncopal episode, opacity seen on a stat chest x-ray. Emperic treatment with Cefepime. If no infiltrates develop after 48 to 72 hours, okay to stop antibiotics. Consider swallow eval after EGD. Qualifiers: Laterality: unspecified laterality Lung location: unspecified part of lung Qualified Code(s): J69.0 - Pneumonitis due to inhalation of food and vomit (9) Anemia Current Visit: No Status: Chronic Assessment and plan: May see drop in hemoglobin in AM since he had episode of hematemesis and also now getting IV fluid. Will trend H&H and transfuse as needed. No sign of active GIB at the moment. Plan for EGD tomorrow. Qualifiers: Anemia type: unspecified type Qualified Code(s): D64.9 - Anemia, unspecified (10) Lactic acidosis Current Visit: Yes Status: Acute Assessment and plan: Continue with IV fluid and trend until within normal limits. (11) GERD (gastroesophageal reflux disease) Current Visit: No Status: Chronic Qualifiers: Esophagitis presence: esophagitis presence not specified Qualified Code(s) : K21.9 - Gastro-esophageal reflux disease without esophagitis (12) Status post aortic valve replacement Current Visit: No Status: Chronic (13) Lung nodule seen on imaging study Current Visit: Yes Status: Acute Assessment and plan: Nodules less than 6 mm. Will probably need repeat CT chest in 12 months since patient is a smoker. Internal Medicine - CN: HPI - Data of Consult Requesting Physician: Estuardo Prado MD - Consult Narrative History of present illness: 87 year old male here for reverse total replacement of left shoulder, done one day ago on 06/01. We are consulted for hypotension and GIB. He has past medical history of COPD, h/o CABG (as seen on chest x-ray imaging), chronic anemia, GERDPatient tolerated procedure well shoulder replacement procedure well. He was ready for discharge but at approx 8:30 AM a rapid response was called because patient was found to be poorly responsive sitting up in his chair at bedside, blood pressure at bedside was 54/40, heart rate 48, and poorly responsive. He had multiple episodes of vomiting. After getting patient to bed, he was more responsive and was then alert, but continued with vomiting. Eventually his emesis began looking bloody in appearance. Symptoms did improve with 1 L IV fluids and Zofran. After vomiting episodes subsided patient remained normotensive with SBP ranging in 140s, and HR wnl. EKG was done and showed no acute ST/T wave changes, telemetry shows occasional PVCs. Chest x-ray showed potental aspiration. H&H showed hemoglobin 11.0 then 10.4. Gastric occult checked and positive for blood. Lactic acid elevated at 3.9. Past Med Surg Social Fam HX - Past Medical History Medical history: COPD, GERD, glaucoma, hyperlipidemia, hypertension Psychiatric history: no psych history - Past Surgical History Surgical History: heart valve replacement - Social History Smoking Status: Never smoker Smokeless Tobacco Status: No Alcohol use: none Drug use: none - Family History Mother Name: Katy Cochran Living Status: Age at : 92 Hx Family Cancer: Yes (throat cancer) Father Name: Kyaw Cochran Living Status: Age at : 78 Cause of : PNE - Constitutional Constitutional: no anorexia, no chills, no excessive sweating, no fatigue, no fever(s), no lethargy - EENT Nose, mouth and throat: no bleeding gums, no dry mouth, no epistaxis, no facial pain, no neck pain, no odynophagia, no throat swelling - Cardiovascular Cardiovascular ROS IM: lightheadedness, no chest pain, no claudication, no diaphoresis, no dyspnea, no edema, no irregular heart rhythm, no palpitations - Respiratory Respiratory: hemoptysis, no cough, no dyspnea, no pain with cough - Gastrointestinal Gastrointestinal: coffee ground emesis, heartburn, hematemesis, nausea, vomiting , no abdominal pain, no constipation, no diarrhea, no dyspepsia, no dysphagia, no hematochezia, no melena, no odynophagia, no tenesmus - Genitourinary Genitourinary ROS male: no difficulty urinating, no dysuria, no flank pain, no genital lesions - Musculoskeletal Musculoskeletal ROS IM: no deformity, no numbness, no stiffness, no tingling - Integumentary Integumentary IM: no erythema, no new lesions, no non-healing lesions, no pruritus, no rash, no skin ulcer - Neurological Neurological ROS: dizziness, no abnormal speech, no behavioral changes, no confusion, no convulsions, no headache(s), no lack of coordination, no loss of vision Internal Medicine - CN: Meds Aspirin Enteric Coated [Aspirin EC] 325 mg PO DAILY 21 Days #21 tablet. [Rx] OxyCODONE Immed Rel [Roxicodone 5 MG] 5 mg PO Q6HR PRN 7 Days #28 tablet [Rx] Albuterol Sulfate [Ventolin Hfa] 2 puff IH Q4-6H PRN 06/01/17 [History] Amlodipine Besylate 2.5 mg PO DAILY 06/01/17 [History] Aspirin 81 mg PO DAILY 06/01/17 [History] Atorvastatin [Lipitor] 40 mg PO HS 06/01/17 [History] Doxazosin [Cardura] 4 mg PO HS 06/01/17 [History] Finasteride [Proscar] 5 mg PO DAILY 06/01/17 [History] Ibuprofen [Motrin] 200 - 400 mg PO Q4HR PRN 06/01/17 [History] Latanoprost [Xalatan] 1 drop OP HS 06/01/17 [History] 3 Allergy/AdvReac Type Severity Reaction Status Date / Time diphenhydramine Allergy Hives Verified 06/01/17 11:59 [From Benadryl] naproxen [From Aleve] Allergy Hives Verified 06/01/17 11:59 Penicillins Allergy Hives Verified 06/01/17 11:59 red dye Allergy Hives Verified 06/01/17 11:59 Internal Medicine - CN: Exam - Constitutional Vitals: Temp Pulse Resp BP Pulse Ox 98.8 F 62 18 145/66 91 06/02/17 15:04 06/02/17 15:04 06/02/17 15:04 06/02/17 15:04 06/02/17 15:04 General appearance IM: Present: mild distress, A&O X 3 - Head Head exam: Present: atraumatic, normocephalic - Eye Eye exam: Present: EOMI, normal appearance. Absent: nystagmus Pupils: Present: normal accommodation, PERRL. Absent: irregular - ENT ENT exam: Present: mucous membranes moist - Neck Neck exam general surgery: Present: full ROM, normal inspection. Absent: lymphadenopathy - Respiratory Respiratory exam: Present: decreased breath sounds, rales. Absent: tachypnea - Cardiovascular Cardiovascular exam IM: Present: RRR - GI/Abdominal GI/Abdominal exam IM: Present: normal bowel sounds, soft, no peritoneal signs. Absent: distended, firm, guarding, hernia, rebound, rigid, tenderness - Extremities Exam Extremities exam IM: Present: warm, radial pulses palpable and symmetrical. Absent: mottling, pedal edema - Neurological Exam Neurological exam: Present: alert, CN II-XII intact, oriented X3, no focal deficits, strengths equal and symetr throughout. Absent: abnormal gait, pronater drift, facial droop, speech deficit - Skin Skin exam IM: Present: dry, warm Internal Medicine - CN: Reslt - Labs CBC & Chem 7: 06/02/17 14:38 06/02/17 08:59 Labs: Short CBC 06/01/17 06/02/17 06/02/17 Range/Units 17:42 04:43 08:59 WBC 12.2 H (4.3-11.1) K/mcL Hgb 11.0 L 11.3 L 10.4 L (12.9-16.9) g/dL Hct 32.4 L 33.3 L 30.4 L (37.5-50.1) % Plt Count 206 (140-400) K/mcL Neutrophils # 9.6 H (1.6-8.9) K/mcL 06/02/17 Range/Units 14:38 WBC (4.3-11.1) K/mcL Hgb 10.1 L (12.9-16.9) g/dL Hct 29.0 L (37.5-50.1) % Plt Count (140-400) K/mcL Neutrophils # (1.6-8.9) K/mcL BMP 06/02/17 08:59 Sodium 140 Potassium 4.0 Chloride 106 Carbon Dioxide 22 L BUN 18 Creatinine 0.95 Glucose 183 H Calcium 8.2 L Cardiac Enzymes 06/02/17 Range/Units 08:59 Troponin I < 0.03 (< 0.04) ng/mL Liver Function 06/02/17 Range/Units 08:59 Total Bilirubin 1.7 H (0.3-1.0) mg/dL AST 16 (13-39) Units/L ALT 12 (7-52) Units/L Alkaline Phosphatase 42 (34-104) Units/L Albumin 3.2 L (3.5-5.7) g/dL - Impressions Impressions Shoulder X-Ray 06/01/17 00:00 IMPRESSION: 1. Status post uncomplicated shoulder arthroplasty. D/ / Rodger Quintanilla MD / Rodger Quintanilla MD Interpreting Provider: Rodger Quintanilla MD Chest X-Ray 06/02/17 08:30 IMPRESSION: Small bilateral pleural effusions and bibasilar opacities, new on the left. Edema versus infection. D/ / Hayley Wood MD / Hayley Wood MD Interpreting Provider: Hayley Wood MD Chest CT 06/02/17 09:31 IMPRESSION: Minimal bibasilar atelectasis with sequela of prior granulomatous disease. Two nodules measuring less than 6 mm in the right upper lobe. Soft tissue gas centered about the left shoulder and the patient has undergone recent reverse left shoulder replacement surgery. The gas in the soft tissues is most likely postoperative. No discrete fluid collection/abscess is suggested. Small sliding hiatal hernia. Anemia. RECOMMENDATIONS: Fleischner Society guidelines for follow-up and management of incidentally detected pulmonary nodules: Multiple Solid Nodules: Nodule size less than 6 mm In a low-risk patient, no routine follow-up. In a high-risk patient, optional CT at 12 months. - Low risk patients include individuals with minimal or absent history of smoking and other known risk factors. - High risk patients include individuals with a history or smoking or known risk factors. Radiology 2017 http://pubs.rsna.org/doi/full/10.1148/radiol.[id number] D/ / 06/02/2017 11:00:40 James Arana MD / [email or web address] Interpreting Provider: James Arana MD Consult Discharge Plan - Plan Referrals: Joanne Collier MD [Primary Care Provider] -
--- NOTE | 2017-06-02 17:21 | Event Note ---
Date of Encounter: 06/02/17 Time of Encounter: 12:00 PCR- POD#1 L TSR juana Prado 06/01/17 PCR - Patient seen at bedside. Pain control: Adequate Participating in PT. All questions and concerns addressed. Educated on use of incentive spirometer, ambulation, and hydration. Patient educated on post-operative restrictions and care. Addressed: Patient had vasovagal episode this morning with syncope requiring rapid response team. He subsequently had emesis with coffee ground appearance that was positive for occult blood. Hospitalist and GI consulted by rapid response team. Patient scheduled for EGD tomorrow and clear liquids today. Will avoid NSAIDS with him given the emesis and pending scope - trial Cyclobenzaprine. D/C plan: Home with HH pending GI and Hospitalist teams' findings.
[2017-06-02] MEDS: 0.9 % Sodium Chloride 1,000 ML IVC SCH (20:22)
[2017-06-03] MEDS: Pantoprazole 40 MG in 0.9 % Sodium Chloride Mini Bag 100 ML IVC SCH ×3 (01:03→11:50)
[2017-06-03] MEDS ORDERED: *HR* Morphine 2 MG/ML SYRINGE IVP ONE (01:30)
[2017-06-03] MEDS: Cefepime HCl 2,000 MG in Water for inj. (sterile) 20 ML IVP SCH ×3 (02:57→12:33)
[2017-06-03] MEDS: Ondansetron 4 MG/2 ML VIAL IVP PRN (02:57)
[2017-06-03] MEDS: 0.9 % Sodium Chloride 1,000 ML IVC SCH ×3 (02:59→22:35)
[2017-06-03 06:48] LABS: Hematocrit 26.7 % (37.5-50.1); Hemoglobin 9.1 g/dL (12.9-16.9)
[2017-06-03] MEDS: Finasteride 5 MG TABLET PO SCH (07:27)
[2017-06-03] MEDS: amLODIPine 5 MG TABLET PO SCH (07:27)
[2017-06-03] MEDS: Aspirin 81 MG TAB.CHEW PO SCH (07:27)
--- NOTE | 2017-06-03 08:55 | Electrocardiograph Report ---
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
--- NOTE | 2017-06-03 09:05 | Orthopedics Progress Note ---
Date of Encounter: 06/03/17 Time of Encounter: 09:04 - Assessment and Plan (1) Status post reverse total replacement of left shoulder Current Visit: Yes Status: Acute (2) Rotator cuff arthropathy of left shoulder Current Visit: No Status: Chronic (3) HLD (hyperlipidemia) Current Visit: No Status: Chronic Qualifiers: Hyperlipidemia type: unspecified Qualified Code(s): E78.5 - Hyperlipidemia , unspecified (4) HTN (hypertension) Current Visit: No Status: Chronic Qualifiers: Hypertension type: unspecified Qualified Code(s): I10 - Essential (primary ) hypertension (5) COPD (chronic obstructive pulmonary disease) Current Visit: No Status: Chronic Qualifiers: COPD type: unspecified COPD Qualified Code(s): J44.9 - Chronic obstructive pulmonary disease, unspecified (6) Status post aortic valve replacement Current Visit: No Status: Chronic (7) Anemia Current Visit: No Status: Chronic Qualifiers: Anemia type: unspecified type Qualified Code(s): D64.9 - Anemia, unspecified (8) GERD (gastroesophageal reflux disease) Current Visit: No Status: Chronic Qualifiers: Esophagitis presence: esophagitis presence not specified Qualified Code(s) : K21.9 - Gastro-esophageal reflux disease without esophagitis (9) 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 He had an episode yesterday vasovagal required rapid response doing very well is morning. Patient waiting upper GI endoscopy. Afebrile vital signs stable. Operative extremity: Neurovascularly intact Dressing clean dry and intact Calves nontender Assessment and plan: Continue with postoperative care Hemoglobin 9.1 discharge if cleared by GI team. Objective Vital signs: Vital Signs Temp Pulse Resp BP Pulse Ox 06/03/17 06:45 98.1 F 78 18 128/68 93 06/03/17 05:17 99.8 F H 79 16 133/61 93 06/03/17 00:40 99.0 F 56 14 132/77 95 06/02/17 19:41 98.7 F 68 16 125/60 94 06/02/17 15:04 98.8 F 62 18 145/66 91 06/02/17 11:37 98.1 F 69 18 157/74 94 Intake and Output 06/02/17 06/03/1718 23:59 07:59 15:59 Intake Total 460 / 460 1220 / 1220 Balance 460 / 460 1220 / 1220 Intake: IV Fluids 220 / 220 1220 / 1220 0.9 % Sodium Chloride 1,000 ML 1000 / 1000 @ 100 mls/hr IVC .Q10H ACACIA Rx#: [id number] Protonix 40 MG In 0.9 % Sodium 200 / 200 200 / 200 Chloride (Mini-Bag +) 100 ML @ 20 mls/hr IVC .Q5H ACACIA Rx#: [id number] Maxipime 2,000 MG In Water for 20 / 20 inj. (sterile) 20 ML @ 300 mls/ hr IVP Q8H ACACIA Rx#:[id number] Oral 240 / 240 Other: Meal Dinner Percent of Meal Consumed 50% - Labs CBC & BMP: 06/03/17 06:27 06/02/17 08:59 Labs: Abnormal lab results WBC 12.2 K/mcL (4.3-11.1) H 06/02/17 08:59 RBC 3.33 M/mcL (4.19-5.50) L 06/02/17 08:59 Hgb 9.1 g/dL (12.9-16.9) L 06/03/17 06:27 Hct 26.7 % (37.5-50.1) L 06/03/17 06:27 Neutrophils # 9.6 K/mcL (1.6-8.9) H 06/02/17 08:59 Carbon Dioxide 22 mEq/L (23-29) L 06/02/17 08:59 Glucose 183 mg/dL (70-105) H 06/02/17 08:59 Calcium 8.2 mg/dL (8.6-10.3) L 06/02/17 08:59 Total Bilirubin 1.7 mg/dL (0.3-1.0) H 06/02/17 08:59 Serum Total Protein 5.7 g/dL (6.4-8.9) L 06/02/17 08:59 Albumin 3.2 g/dL (3.5-5.7) L 06/02/17 08:59 Gastric Occult Blood Positive (Negative) A 06/02/17 09:00 - VTE Documentation of Mechanical Device: Venous foot pump, device Consult Discharge Plan - Plan Referrals: Joanne Collier MD [Primary Care Provider] -
[2017-06-03] MEDS ORDERED: Water for inj. (sterile) 10 ML IV ONE (11:29)
--- NOTE | 2017-06-03 14:48 | Anesthesia Evaluation PreOp ---
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 [Rx] OxyCODONE Immed Rel [Roxicodone 5 MG] 5 mg PO Q6HR PRN 7 Days #28 tablet [Rx] Albuterol Sulfate [Ventolin Hfa] 2 puff IH Q4-6H PRN 06/01/17 [History] Amlodipine Besylate 2.5 mg PO DAILY 06/01/17 [History] Aspirin 81 mg PO DAILY 06/01/17 [History] Atorvastatin [Lipitor] 40 mg PO HS 06/01/17 [History] Doxazosin [Cardura] 4 mg PO HS 06/01/17 [History] Finasteride [Proscar] 5 mg PO DAILY 06/01/17 [History] Ibuprofen [Motrin] 200 - 400 mg PO Q4HR PRN 06/01/17 [History] Latanoprost [Xalatan] 1 drop OP HS 06/01/17 [History] 3 Allergy/AdvReac Type Severity Reaction Status Date / Time diphenhydramine Allergy Hives Verified 06/01/17 11:59 [From Benadryl] naproxen [From Aleve] Allergy Hives Verified 06/01/17 11:59 Penicillins Allergy Hives Verified 06/01/17 11:59 red dye Allergy Hives Verified 06/01/17 11:59 - Meds/Allergy Pre-op Review Medications Reviewed: Yes Allergies Reviewed: Yes Beta Blockers on Current Med List: No Anesthesia Results - Labs 06/03/17 06:27 06/02/17 08:59 - Imaging EKG: report reviewed (SR short TN) Anesthesia Exam O2 Sat O2 Sat by Pulse Oximetry 98 O2 Sat by Pulse Oximetry 93 O2 Sat by Pulse Oximetry 93 O2 Sat by Pulse Oximetry 95 O2 Sat by Pulse Oximetry 94 O2 Sat by Pulse Oximetry 91 Vital Signs Temp Pulse Resp BP Pulse Ox 98.5 F 67 18 173/85 98 06/01/17 11:56 06/01/17 11:56 06/01/17 11:56 06/01/17 11:56 06/01/17 11:56 Height: 5'11 Weight: 206 lbs NPO (# of Hours): MN Pain Scale: 0 - HEENT Pupil (Motor): Pupils equal, EOMI Mallampati: II Teeth: Normal Oral Opening: Greater than 3 - VACUUM FILTER OPERATOR LOC: Oriented VACUUM FILTER OPERATOR Motor: Normal RUE, Normal LUE, Normal RLE, Normal LLE, Normal Face VACUUM FILTER OPERATOR Sensory: Normal: RUE, LUE, RLE, LLE, Face - Cardiac Rhythm: Regular Murmur: None JVD: No Carotid Bruit: No - Pulmonary Breath Sounds: bilateral Clear Respiratory Effort: Symmetrical Anesthesia Assess/Plan ASA Score: 3 (COPD Hyperlipidemia) Modified Hemanth Scale for Level of Consciousness: Cooperative, oriented, and tranquil Anesthetic Plan: MAC Monitoring Plan: Standard Monitors Recovery Plan: Other (Discussed MAC, agrees to proceed)
[2017-06-03] MEDS ORDERED: *HR* Propofol 200 MG/20 ML VIAL IVP ONE (15:04)
--- NOTE | 2017-06-03 16:31 | Event Note ---
Date of Encounter: 06/03/17 Time of Encounter: 12:30 PCR- POD#2 L TSR reverse Johan 06/01/17 PCR - Patient seen at bedside. Pain control: Adequate Participating in PT. All questions and concerns addressed. Educated on use of incentive spirometer, ambulation, and hydration. Patient educated on post-operative restrictions and care. Addressed: Patient had vasovagal episode this yesterday with syncope requiring rapid response team. He subsequently had emesis with coffee ground appearance that was positive for occult blood. Hospitalist and GI consulted by rapid response team. Patient scheduled for EGD today. Will avoid NSAIDS with him given the emesis and pending scope - trial Cyclobenzaprine. D/C plan: Home with HH pending GI and Hospitalist teams' findings.
--- NOTE | 2017-06-03 18:28 | Internal Med Progress Note ---
Date of Encounter: 06/03/17 Time of Encounter: 12:26 - Assessment and plan (1) Rotator cuff arthropathy of left shoulder Current Visit: No Status: Chronic Assessment and plan: Management per Ortho, patient stable from this standpoint. (2) Vasovagal episode Current Visit: Yes Status: Acute Assessment and plan: Resolved, with IV support. (3) Hypotension Current Visit: Yes Status: Acute Assessment and plan: Resolved with IVF Qualifiers: Hypotension type: unspecified hypotension type Qualified Code(s): I95.9 - Hypotension, unspecified (4) Hematemesis with nausea Current Visit: Yes Status: Acute Assessment and plan: Scheduled for EGD today. (5) HLD (hyperlipidemia) Current Visit: No Status: Chronic Qualifiers: Hyperlipidemia type: unspecified Qualified Code(s): E78.5 - Hyperlipidemia , unspecified (6) HTN (hypertension) Current Visit: No Status: Chronic Assessment and plan: Hold hypertensive medications for now. Qualifiers: Hypertension type: essential hypertension Qualified Code(s): I10 - Essential (primary) hypertension (7) COPD (chronic obstructive pulmonary disease) Current Visit: No Status: Chronic Qualifiers: COPD type: unspecified COPD Qualified Code(s): J44.9 - Chronic obstructive pulmonary disease, unspecified (8) Aspiration pneumonia due to vomit Current Visit: Yes Status: Acute Assessment and plan: Continue Vancomycin/Cefepime for potential aspiration pneumonia. Qualifiers: Laterality: unspecified laterality Lung location: unspecified part of lung Qualified Code(s): J69.0 - Pneumonitis due to inhalation of food and vomit (9) Anemia Current Visit: No Status: Chronic Assessment and plan: Recheck CBC in AM, likely hematemesis with hemodilutional component after IVF given. Qualifiers: Anemia type: unspecified type Qualified Code(s): D64.9 - Anemia, unspecified (10) Lactic acidosis Current Visit: Yes Status: Resolved Assessment and plan: Resolved (11) GERD (gastroesophageal reflux disease) Current Visit: No Status: Chronic Qualifiers: Esophagitis presence: esophagitis presence not specified Qualified Code(s) : K21.9 - Gastro-esophageal reflux disease without esophagitis (12) Status post aortic valve replacement Current Visit: No Status: Chronic (13) Lung nodule seen on imaging study Current Visit: Yes Status: Acute Assessment and plan: Consider OOP follow-up because of smoking history. Age should be taken into consideration if workup/testing is desired by patient. - Subjective Interval history: No acute events overnight, no complaints. - Constitutional Vitals: Temp Pulse Resp BP Pulse Ox 100.9 F H 104 18 136/54 94 06/03/17 15:39 06/03/17 15:39 06/03/17 15:39 06/03/17 15:39 06/03/17 15:39 General appearance: Present: mild distress, A&O X 3 Exam: Gen: NAD, AAOx3 CVS: RRR Lungs: CTAB Ext: no edema Internal Medicine: Result - Labs CBC & Chem 7: 06/03/17 06:27 06/02/17 08:59 Labs: Short CBC 06/03/17 Range/Units 06:27 Hgb 9.1 L (12.9-16.9) g/dL Hct 26.7 L (37.5-50.1) % - VTE Documentation of Mechanical Device: Venous foot pump, device Consult Discharge Plan - Plan Referrals: Joanne Collier MD [Primary Care Provider] -
[2017-06-03] MEDS: *HR* OxyCODONE Immed Rel 5 MG TABLET PO PRN (19:10)
[2017-06-03] MEDS: Sucralfate 1 GM TABLET PO SCH (20:02)
[2017-06-03] MEDS: Cefepime HCl 2,000 MG in Water for inj. (sterile) 20 ML 20 ML IVP SCH (22:35)
[2017-06-04 05:21] LABS: Basophils % 0.3 %; Eosinophils # 0.5 K/mcL (0.0-0.6); Eosinophils % 4.6 %; Hematocrit 25.8 % (37.5-50.1); Hemoglobin 8.5 g/dL (12.9-16.9); Immature Granulocytes % 0.5 % (0-4); Immature Platelets 3.7 % (1.1-6.1); Lymphocytes % 17.2 %; Mean Corpuscular HGB Conc 32.9 g/dL (31.6-35.5); Mean Corpuscular Volume 94.2 fL (83.0-100.0); Mean Platelet Volume 10.4 fL (9.4-12.4); Monocytes % 8.3 %; Neutrophils # 7.9 K/mcL (1.6-8.9); Platelet Count 158 K/mcL (140-400); Red Blood Count 2.74 M/mcL (4.19-5.50); Red Cell Distribution Width 12.2 % (11.5-14.5); Segmented Neutrophils % 69.1 %
[2017-06-04 06:18] LABS: BUN/Creatinine Ratio 16 (6-26); Blood Urea Nitrogen 14 mg/dL (8-23); Calcium 7.3 mg/dL (8.6-10.3); Carbon Dioxide 23 mEq/L (23-29); Chloride 108 mEq/L (98-107); Glucose 102 mg/dL (70-105); Osmolality,Calculated 283 (280-300); Potassium 3.7 mEq/L (3.5-5.1); Sodium 136 mEq/L (136-145); eGFR For African Americans > 60 (> 60); eGFR For Non-African Americans > 60 (> 60)
[2017-06-04] MEDS: amLODIPine 5 MG TABLET PO SCH (08:46)
[2017-06-04] MEDS: Aspirin 81 MG TAB.CHEW PO SCH (08:47)
[2017-06-04] MEDS: Finasteride 5 MG TABLET PO SCH (08:47)
[2017-06-04] MEDS: Sucralfate 1 GM TABLET PO SCH ×3 (08:47→21:52)
[2017-06-04] MEDS: Pantoprazole 40 MG VIAL IVP SCH (08:47)
[2017-06-04] MEDS: 0.9 % Sodium Chloride 1,000 ML IVC SCH (08:54)
[2017-06-04] MEDS ORDERED: Calcium Gluconate 2,000 MG in D5% in Water 100 ML IVPB ONE (09:35)
[2017-06-04] MEDS: Cefepime HCl 2,000 MG in Water for inj. (sterile) 20 ML 20 ML IVP SCH ×2 (11:54→23:31)
--- NOTE | 2017-06-04 12:12 | Orthopedics Progress Note ---
Date of Encounter: 06/04/17 Time of Encounter: 08:00 - Assessment and Plan (1) Rotator cuff arthropathy of left shoulder Current Visit: No Status: Chronic (2) HLD (hyperlipidemia) Current Visit: No Status: Chronic Qualifiers: Hyperlipidemia type: unspecified Qualified Code(s): E78.5 - Hyperlipidemia , unspecified (3) HTN (hypertension) Current Visit: No Status: Chronic Qualifiers: Hypertension type: essential hypertension Qualified Code(s): I10 - Essential (primary) hypertension (4) COPD (chronic obstructive pulmonary disease) Current Visit: No Status: Chronic Qualifiers: COPD type: unspecified COPD Qualified Code(s): J44.9 - Chronic obstructive pulmonary disease, unspecified (5) Status post aortic valve replacement Current Visit: No Status: Chronic (6) Anemia Current Visit: No Status: Chronic Qualifiers: Anemia type: unspecified type Qualified Code(s): D64.9 - Anemia, unspecified (7) GERD (gastroesophageal reflux disease) Current Visit: No Status: Chronic Qualifiers: Esophagitis presence: esophagitis presence not specified Qualified Code(s) : K21.9 - Gastro-esophageal reflux disease without esophagitis (8) 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 He admits to weakness however states that he is feeling much better stating "I wish I could have some real food" instead of clears. Objective: He had an episode 2 days ago 06/02/17 of vasovagal requiring rapid response and he had dark brown occult blood positive emesis. Hospitalist team consulted GI team that performed EGD 06/03/17 revealing Grade C esophagitis and recommended BID PPI. Patient is currently on Carafate and clear liquids as well. He is doing very well is morning sitting upright in chair upon entering the room. Afebrile vital signs stable. Operative extremity: Neurovascularly intact Dressing clean dry and intact Calves nontender Patient in brace as directe Assessment and plan: Continue with postoperative care Continue PT/OT Hemoglobin 8.5/ Hematocrit 25.8 Okay for discharge if cleared by GI team and Hospitalist team. Objective Vital signs: Vital Signs Temp Pulse Resp BP Pulse Ox 01/18/18 11:06 98.0 F 114 18 145/66 93 06/04/17 06:54 100.7 F H 77 18 148/66 96 06/04/17 04:08 98.1 F 71 15 131/60 96 06/04/17 00:00 98.3 F 81 16 137/55 96 06/03/17 20:01 98.2 F 83 17 142/54 96 06/03/17 19:14 99.1 F 06/03/17 15:39 100.9 F H 104 18 136/54 94 06/03/17 14:51 10.8 F L 82 18 156/66 90 Intake and Output 06/03/17 06/04/17 06/04/17 23:59 07:59 15:59 Intake Total 1620 / 1620 1020 / 1020 Balance 1620 / 1620 1020 / 1020 Intake: IV Fluids 1020 / 1020 1020 / 1020 0.9 % Sodium Chloride 1,000 ML 1000 / 1000 1000 / 1000 @ 100 mls/hr IVC .Q10H [facility] Rx#: [id number] Maxipime 2,000 MG In Water for 20 / inj. (sterile) 20 ML @ 300 mls/ hr IVP Q12H [facility] Rx#:[id number] Oral 600 / 600 - Labs CBC & BMP: 06/04/17 04:16 06/04/17 04:16 Labs: Abnormal lab results WBC 11.5 K/mcL (4.3-11.1) H 06/04/17 04:16 RBC 2.74 M/mcL (4.19-5.50) L 06/04/17 04:16 Hgb 8.5 g/dL (12.9-16.9) L 06/04/17 04:16 Hct 25.8 % (37.5-50.1) L 06/04/17 04:16 Chloride 108 mEq/L (98-107) H 06/04/17 04:16 Calcium 7.3 mg/dL (8.6-10.3) L 06/04/17 04:16 Total Bilirubin 1.7 mg/dL (0.3-1.0) H 06/02/17 08:59 Serum Total Protein 5.7 g/dL (6.4-8.9) L 06/02/17 08:59 Albumin 3.2 g/dL (3.5-5.7) L 06/02/17 08:59 Gastric Occult Blood Positive (Negative) A 06/02/17 09:00 - VTE Documentation of Mechanical Device: Venous foot pump, device Consult Discharge Plan - Plan Additional Instructions: Discharge Instructions: Total Shoulder Please call [facility] ([phone]), your Primary Care Physician, or report to the Emergency Room if you have any of the following symptoms: Nausea, vomiting, fever greater that 101.5, swelling, chest pain, shortness of breath, increased pain/redness/drainage/odor for your incision site, numbness/ tingling, or any other concerning symptoms. ACTIVITY: Always keep your arm in the sling. Do not raise your arm away from your body. Do not use your arm to help with getting in or out of bed. No weight bearing permitted. Only perform those exercises given to you by your therapist. MEDICATIONS: Upon discharge resume your home medications. Take all the medications as prescribed. Take a stool softener if taking narcotic pain medications. Stool softeners are only effective if you drink enough fluids. Drink 6-8 glass of water or fluids a day, unless this is not allowed for another health problem. Despite using stool softeners, if you haven't had a bowel movement in 3 days, please switch to a gentle laxative. Gentle laxatives are sold over the counter. You should have a bowel movement within 24 hours, if not call the office. You will be discharged from the hospital with a prescription for pain medication. You are encouraged to decrease the use of narcotic pain medication as tolerated. Should you require a refill, please call the office. [facility] prescribes narcotic pain medication for only 4-6 weeks after surgery. If you require pain medication beyond this time period, you may be referred to your Primary Care Physician or to the Pain Clinic for further evaluation. Plan ahead for refills on pain medication as many narcotics either need to be picked up at the office or mailed. It is best to call 48-72 hours in advance of needing a prescription refill so you don't run out of medication. To help control the post-operative pain, you may take NSAIDs (Aleve,Advil, Motrin, Ibuprofen, Naprosyn) or Tylenol as prescribed on the bottle in addition to the pain medication. WOUND CARE: Leave the dressing on for 7-10 days. You may change the dressing if it becomes saturated greater than 50%. Do not get the dressing wet at anytime. Wash your hands with antibacterial soap, rinse and dry prior to any wound care. If you have nirmala the visiting nurse or rehab facility can remove the stapes 10-14 days after surgery and place steri-strips across the wound. Leave the steri-strips in place until they fall off on their own. You may let water from the shower run on top of the steri-strips. If you do not have a visiting nurse or rehab facility, you will need to return to the office at 10-14 days for the nirmala to be removed. If you have itching or redness around the dressing call the office. FOLLOW-UP: Please follow up with your surgeon in the orthopedic clinic, as scheduled Referrals: Trixie Grady PAC [Physician Dredge Runner] - 06/11/17 10:15 am Estuardo Prado MD [Partnered Physician] - 07/01/17 4:35 pm
--- NOTE | 2017-06-04 17:54 | Internal Med Progress Note ---
Date of Encounter: 06/04/17 Time of Encounter: 17:51 - Assessment and plan (1) Aspiration pneumonia due to vomit Current Visit: Yes Status: Acute Assessment and plan: Continue Vancomycin/Cefepime for potential aspiration pneumonia. Still febrile. A repeat chest x-ray done today shows pulmonary edema and pleural effusions. Will need diuresis and holding off fluids. Qualifiers: Laterality: unspecified laterality Lung location: unspecified part of lung Qualified Code(s): J69.0 - Pneumonitis due to inhalation of food and vomit (2) Rotator cuff arthropathy of left shoulder Current Visit: No Status: Chronic Assessment and plan: Management per Ortho, patient stable from this standpoint. (3) Vasovagal episode Current Visit: Yes Status: Resolved Assessment and plan: Resolved, with IV support. (4) Hypotension Current Visit: Yes Status: Resolved Assessment and plan: Resolved with IVF but patient now fluid overloaded, will need diuresis Qualifiers: Hypotension type: unspecified hypotension type Qualified Code(s): I95.9 - Hypotension, unspecified (5) Hematemesis with nausea Current Visit: Yes Status: Resolved Assessment and plan: Preliminary found to be gastritis. Continue IV ppi, carafate. (6) HLD (hyperlipidemia) Current Visit: No Status: Chronic Qualifiers: Hyperlipidemia type: unspecified Qualified Code(s): E78.5 - Hyperlipidemia , unspecified (7) HTN (hypertension) Current Visit: No Status: Chronic Assessment and plan: Will add IV hydralazine prn. Qualifiers: Hypertension type: essential hypertension Qualified Code(s): I10 - Essential (primary) hypertension (8) COPD (chronic obstructive pulmonary disease) Current Visit: No Status: Chronic Qualifiers: COPD type: unspecified COPD Qualified Code(s): J44.9 - Chronic obstructive pulmonary disease, unspecified (9) Anemia Current Visit: No Status: Chronic Assessment and plan: Recheck CBC in AM, likely hematemesis with hemodilutional component after IVF given. Qualifiers: Anemia type: unspecified type Qualified Code(s): D64.9 - Anemia, unspecified (10) Lactic acidosis Current Visit: Yes Status: Resolved (11) GERD (gastroesophageal reflux disease) Current Visit: No Status: Chronic Qualifiers: Esophagitis presence: esophagitis presence not specified Qualified Code(s) : K21.9 - Gastro-esophageal reflux disease without esophagitis (12) Status post aortic valve replacement Current Visit: No Status: Chronic (13) Lung nodule seen on imaging study Current Visit: Yes Status: Acute - Subjective Interval history: No complaints. He did have a fever at 0654 of 100.7. - Constitutional Vitals: Temp Pulse Resp BP Pulse Ox 99.9 F H 71 12 167/55 94 06/04/17 16:05 06/04/17 16:05 06/04/17 16:05 06/04/17 16:05 06/04/17 16:05 Exam: Gen: NAD, AAOx3 CVS: RRR Lungs: CTAB Ext: no edema Skin: warm, dry Internal Medicine: Result - Labs CBC & Chem 7: 06/04/17 04:16 06/04/17 04:16 Labs: Short CBC 06/04/17 Range/Units 04:16 WBC 11.5 H (4.3-11.1) K/mcL Hgb 8.5 L (12.9-16.9) g/dL Hct 25.8 L (37.5-50.1) % Plt Count 158 (140-400) K/mcL Neutrophils # 7.9 (1.6-8.9) K/mcL BMP 06/04/17 04:16 Sodium 136 Potassium 3.7 Chloride 108 H Carbon Dioxide 23 BUN 14 Creatinine 0.89 Glucose 102 Calcium 7.3 L - Impressions Impressions Chest X-Ray 06/04/17 09:36 IMPRESSION: Findings suggestive of a pulmonary edema and bilateral pleural effusions, worse since 06/02/2017. D/ / Pop Figueredo MD / Pop Figueredo MD Interpreting Provider: Pop Figueredo MD - VTE Documentation of Mechanical Device: Venous foot pump, device Consult Discharge Plan - Plan Additional Instructions: Discharge Instructions: Total Shoulder Please call [facility] ([phone]), your Primary Care Physician, or report to the Emergency Room if you have any of the following symptoms: Nausea, vomiting, fever greater that 101.5, swelling, chest pain, shortness of breath, increased pain/redness/drainage/odor for your incision site, numbness/ tingling, or any other concerning symptoms. ACTIVITY: Always keep your arm in the sling. Do not raise your arm away from your body. Do not use your arm to help with getting in or out of bed. No weight bearing permitted. Only perform those exercises given to you by your therapist. MEDICATIONS: Upon discharge resume your home medications. Take all the medications as prescribed. Take a stool softener if taking narcotic pain medications. Stool softeners are only effective if you drink enough fluids. Drink 6-8 glass of water or fluids a day, unless this is not allowed for another health problem. Despite using stool softeners, if you haven't had a bowel movement in 3 days, please switch to a gentle laxative. Gentle laxatives are sold over the counter. You should have a bowel movement within 24 hours, if not call the office. You will be discharged from the hospital with a prescription for pain medication. You are encouraged to decrease the use of narcotic pain medication as tolerated. Should you require a refill, please call the office. [facility] prescribes narcotic pain medication for only 4-6 weeks after surgery. If you require pain medication beyond this time period, you may be referred to your Primary Care Physician or to the Pain Clinic for further evaluation. Plan ahead for refills on pain medication as many narcotics either need to be picked up at the office or mailed. It is best to call 48-72 hours in advance of needing a prescription refill so you don't run out of medication. To help control the post-operative pain, you may take NSAIDs (Aleve,Advil, Motrin, Ibuprofen, Naprosyn) or Tylenol as prescribed on the bottle in addition to the pain medication. WOUND CARE: Leave the dressing on for 7-10 days. You may change the dressing if it becomes saturated greater than 50%. Do not get the dressing wet at anytime. Wash your hands with antibacterial soap, rinse and dry prior to any wound care. If you have nirmala the visiting nurse or rehab facility can remove the stapes 10-14 days after surgery and place steri-strips across the wound. Leave the steri-strips in place until they fall off on their own. You may let water from the shower run on top of the steri-strips. If you do not have a visiting nurse or rehab facility, you will need to return to the office at 10-14 days for the nirmala to be removed. If you have itching or redness around the dressing call the office. FOLLOW-UP: Please follow up with your surgeon in the orthopedic clinic, as scheduled Referrals: Trixie Grady PAC [Physician Retail Team Member] - 06/11/17 10:15 am Estuardo Prado MD [Partnered Physician] - 07/01/17 4:35 pm
[2017-06-04] MEDS ORDERED: Furosemide 40 MG/4 ML VIAL IVP ONE (17:57)
[2017-06-04] MEDS ORDERED: Azithromycin 500 MG in D5% in Water 250 ML IVPB SCH (18:00)
[2017-06-05 07:32] VITALS: BP 138/76
[2017-06-05] MEDS: Finasteride 5 MG TABLET PO SCH (08:17)
[2017-06-05] MEDS: Sucralfate 1 GM TABLET PO SCH (08:17)
[2017-06-05] MEDS: Pantoprazole 40 MG VIAL IVP SCH (08:17)
[2017-06-05] MEDS: Aspirin 81 MG TAB.CHEW PO SCH (08:18)
[2017-06-05] MEDS: amLODIPine 5 MG TABLET PO SCH (08:18)
[2017-06-05] MEDS ORDERED: Furosemide 40 MG/4 ML VIAL IVP ONE ×2 (10:17)
[2017-06-05] MEDS: Cefepime HCl 2,000 MG in Water for inj. (sterile) 20 ML 20 ML IVP SCH (11:46)
--- NOTE | 2017-06-05 12:07 | Discharge Summary ---
Date of Encounter: 06/05/17 Time of Encounter: 12:03 - Discharge Diagnosis (1) Rotator cuff arthropathy of left shoulder Priority: Primary Status: Chronic (2) Vasovagal episode Priority: Secondary Status: Resolved (3) Hypotension Priority: Secondary Status: Resolved Qualifiers: Hypotension type: unspecified hypotension type Qualified Code(s): I95.9 - Hypotension, unspecified (4) Aspiration pneumonia due to vomit Priority: Secondary Status: Acute Qualifiers: Laterality: unspecified laterality Lung location: unspecified part of lung Qualified Code(s): J69.0 - Pneumonitis due to inhalation of food and vomit (5) Hematemesis with nausea Priority: Secondary Status: Resolved (6) HLD (hyperlipidemia) Priority: Secondary Status: Chronic Qualifiers: Hyperlipidemia type: unspecified Qualified Code(s): E78.5 - Hyperlipidemia , unspecified (7) HTN (hypertension) Priority: Secondary Status: Chronic Qualifiers: Hypertension type: essential hypertension Qualified Code(s): I10 - Essential (primary) hypertension (8) COPD (chronic obstructive pulmonary disease) Priority: Secondary Status: Chronic Qualifiers: COPD type: unspecified COPD Qualified Code(s): J44.9 - Chronic obstructive pulmonary disease, unspecified (9) Anemia Priority: Secondary Status: Chronic Qualifiers: Anemia type: unspecified type Qualified Code(s): D64.9 - Anemia, unspecified (10) Lactic acidosis Priority: Secondary Status: Resolved (11) GERD (gastroesophageal reflux disease) Priority: Secondary Status: Chronic Qualifiers: Esophagitis presence: esophagitis presence not specified Qualified Code(s) : K21.9 - Gastro-esophageal reflux disease without esophagitis (12) Status post aortic valve replacement Priority: Secondary Status: Chronic (13) Lung nodule seen on imaging study Priority: Secondary Status: Acute - Discharge Medications Prescriptions: Clindamycin HCl 600 mg PO BID #40 capsule Furosemide [Lasix] 40 mg PO DAILY #7 tablet Omeprazole [PriLOSEC] 40 mg PO DAILY #30 cap Home Medications: Aspirin Enteric Coated [Aspirin EC] 325 mg PO DAILY 21 Days #21 tablet. [Rx] OxyCODONE Immed Rel [Roxicodone 5 MG] 5 mg PO Q6HR PRN 7 Days #28 tablet [Rx] Albuterol Sulfate [Ventolin Hfa] 2 puff IH Q4-6H PRN 06/01/17 [History] Amlodipine Besylate 2.5 mg PO DAILY 06/01/17 [History] Aspirin 81 mg PO DAILY 06/01/17 [History] Atorvastatin [Lipitor] 40 mg PO HS 06/01/17 [History] Doxazosin [Cardura] 4 mg PO HS 06/01/17 [History] Finasteride [Proscar] 5 mg PO DAILY 06/01/17 [History] Ibuprofen [Motrin] 200 - 400 mg PO Q4HR PRN 06/01/17 [History] Latanoprost [Xalatan] 1 drop OP HS 06/01/17 [History] Clindamycin HCl 600 mg PO BID #40 capsule 06/05/17 [Rx] Furosemide [Lasix] 40 mg PO DAILY #7 tablet 06/05/17 [Rx] Omeprazole [PriLOSEC] 40 mg PO DAILY #30 cap 06/05/17 [Rx] Allergies/Adverse Reactions: 3 Allergy/AdvReac Type Severity Reaction Status Date / Time diphenhydramine Allergy Hives Verified 06/01/17 11:59 [From Benadryl] naproxen [From Aleve] Allergy Hives Verified 06/01/17 11:59 Penicillins Allergy Hives Verified 06/01/17 11:59 red dye Allergy Hives Verified 06/01/17 11:59 Date of admission: 06/01/17 18:24 Primary care physician: Joanne Collier, Consults: 06/01/17 19:40 Consult to Occupational Therapy [CONS] Routine Comment: post shoulder surgery Reason for Consult: post shoulder surgery Consult to Physical Therapy [CONS] Routine Comment: post shoulder surgery Reason for Consult: post shoulder surgery RT Post Op Consult [CONS] Routine 06/02/17 09:29 Consult to Gastroenterology [CONS] Routine Consulting Provider: Gastroenterology Tracie Reason for Consult: Possible upper GIB Call Completed: Yes 06/02/17 09:58 Consult to Hospitalist [CONS] Routine Consulting Provider: Magali Escamilla Reason for Consult: RAPID RESPONSE Call Completed: Yes 06/04/17 11:08 Consult to Wet Chemistry Analyst [CONS] Routine Reason for SW Consult: Discharge planning, set up [facility] Discharging clinician: Mary Torres - Patient Status Disposition: Home, Self-Care Condition: Good Functional capacity at discharge: independent ambulation Overall status at discharge: patient is progressing back to baseline - Discharge Instructions Follow Up With: Trixie Grady PAC [Physician Medical Insurance Clerk] - 06/11/17 10:15 am Estuardo Prado MD [Partnered Physician] - 07/01/17 4:35 pm Additional Instructions: Discharge Instructions: Total Shoulder Please call [facility] ([phone]), your Primary Care Physician, or report to the Emergency Room if you have any of the following symptoms: Nausea, vomiting, fever greater that 101.5, swelling, chest pain, shortness of breath, increased pain/redness/drainage/odor for your incision site, numbness/ tingling, or any other concerning symptoms. ACTIVITY: Always keep your arm in the sling. Do not raise your arm away from your body. Do not use your arm to help with getting in or out of bed. No weight bearing permitted. Only perform those exercises given to you by your therapist. MEDICATIONS: Upon discharge resume your home medications. Take all the medications as prescribed. Take a stool softener if taking narcotic pain medications. Stool softeners are only effective if you drink enough fluids. Drink 6-8 glass of water or fluids a day, unless this is not allowed for another health problem. Despite using stool softeners, if you haven't had a bowel movement in 3 days, please switch to a gentle laxative. Gentle laxatives are sold over the counter. You should have a bowel movement within 24 hours, if not call the office. You will be discharged from the hospital with a prescription for pain medication. You are encouraged to decrease the use of narcotic pain medication as tolerated. Should you require a refill, please call the office. [facility] prescribes narcotic pain medication for only 4-6 weeks after surgery. If you require pain medication beyond this time period, you may be referred to your Primary Care Physician or to the Pain Clinic for further evaluation. Plan ahead for refills on pain medication as many narcotics either need to be picked up at the office or mailed. It is best to call 48-72 hours in advance of needing a prescription refill so you don't run out of medication. To help control the post-operative pain, you may take NSAIDs (Aleve,Advil, Motrin, Ibuprofen, Naprosyn) or Tylenol as prescribed on the bottle in addition to the pain medication. WOUND CARE: Leave the dressing on for 7-10 days. You may change the dressing if it becomes saturated greater than 50%. Do not get the dressing wet at anytime. Wash your hands with antibacterial soap, rinse and dry prior to any wound care. If you have nirmala the visiting nurse or rehab facility can remove the stapes 10-14 days after surgery and place steri-strips across the wound. Leave the steri-strips in place until they fall off on their own. You may let water from the shower run on top of the steri-strips. If you do not have a visiting nurse or rehab facility, you will need to return to the office at 10-14 days for the nirmala to be removed. If you have itching or redness around the dressing call the office. 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 He tolerated procedure well without complications. On 06/02/17 patient had sudden onset of nausea/vomiting, and acute hematemesis. Nursing found him in room to have blood pressure of 54/40 with heart rate of 48 and patient hunched over. He required aggressive IV fluids hydration due to low BP and improved. However nausea and hematemesis persisted. He was started on protonix drip. EKG was unremarkable. Gastroenterology was consulted and patient had an EGD done which showed gastritis and no active bleed. He was started on daily prilosec. Patient did develop fevers, likely from aspiration, he was started on Vancomycin and Cefepime. Patient did have fluid overload after resucitation requiring diuresis with IV Lasix. He overall felt much better. He was hemodynamically stable with good oxygenation. He improved and after remained afebrile, was stable for discharge home. He is discharged on Clindamycin 600 mg BID for likely aspiration pneumonia, allergic to penicillins Lasix 40 mg PO for one week Prilosec 40 mg daily. - Time Spent with Patient Total time spent providing and/or coordinating discharge services: - Constitutional Vitals: Temp Pulse Resp BP Pulse Ox 97.6 F 74 16 138/76 96 06/05/17 06:19 06/05/17 06:19 06/05/17 06:19 06/05/17 06:19 06/05/17 08:47 Exam: Gen: NAD, AAOx3 CVS: RRR Lungs: CTAB Ext: no edema Skin: warm, dry - VTE Documentation of Mechanical Device: Venous foot pump, device
--- NOTE | 2017-06-05 12:38 | Physician Discharge Referral ---
Home Health/Hosp Referral Info Transfer to: Home Health Provider in Charge Post Discharge: PCP - Diagnosis (1) Rotator cuff arthropathy of left shoulder Priority: Primary Status: Chronic (2) Vasovagal episode Priority: Secondary Status: Resolved (3) Hypotension Priority: Secondary Status: Resolved (4) Aspiration pneumonia due to vomit Priority: Secondary Status: Acute (5) Hematemesis with nausea Priority: Secondary Status: Resolved (6) HLD (hyperlipidemia) Priority: Secondary Status: Chronic (7) HTN (hypertension) Priority: Secondary Status: Chronic (8) COPD (chronic obstructive pulmonary disease) Priority: Secondary Status: Chronic (9) Anemia Priority: Secondary Status: Chronic (10) Lactic acidosis Priority: Secondary Status: Resolved (11) GERD (gastroesophageal reflux disease) Priority: Secondary Status: Chronic (12) Status post aortic valve replacement Priority: Secondary Status: Chronic (13) Lung nodule seen on imaging study Priority: Secondary Status: Acute - Respiratory Orders Smoking Cessation: Smoking cessation has been advised. For more information, call the [place] Tobacco Quit Line at 4-380-YKFD-NOW. - Diet/Nutrition Diet/Nutrition Orders: No Added Salt (LUCIA), Cardiac - Activity Activity: List: as per physical therapy - Services Needed Following services are medically necessary services: Home Health Aide, Physical Therapy, Occupational Therapy - Transfer Medications Prescriptions: Clindamycin HCl 600 mg PO BID #40 capsule Furosemide [Lasix] 40 mg PO DAILY #7 tablet Omeprazole [PriLOSEC] 40 mg PO DAILY #30 cap Home Medications: Aspirin Enteric Coated [Aspirin EC] 325 mg PO DAILY 21 Days #21 tablet. [Rx] OxyCODONE Immed Rel [Roxicodone 5 MG] 5 mg PO Q6HR PRN 7 Days #28 tablet [Rx] Albuterol Sulfate [Ventolin Hfa] 2 puff IH Q4-6H PRN 06/01/17 [History] Amlodipine Besylate 2.5 mg PO DAILY 06/01/17 [History] Aspirin 81 mg PO DAILY 06/01/17 [History] Atorvastatin [Lipitor] 40 mg PO HS 06/01/17 [History] Doxazosin [Cardura] 4 mg PO HS 06/01/17 [History] Finasteride [Proscar] 5 mg PO DAILY 06/01/17 [History] Ibuprofen [Motrin] 200 - 400 mg PO Q4HR PRN 06/01/17 [History] Latanoprost [Xalatan] 1 drop OP HS 06/01/17 [History] Clindamycin HCl 600 mg PO BID #40 capsule 06/05/17 [Rx] Furosemide [Lasix] 40 mg PO DAILY #7 tablet 06/05/17 [Rx] Omeprazole [PriLOSEC] 40 mg PO DAILY #30 cap 06/05/17 [Rx] Allergies/Adverse Reactions: 3 Allergy/AdvReac Type Severity Reaction Status Date / Time diphenhydramine Allergy Hives Verified 06/01/17 11:59 [From Benadryl] naproxen [From Aleve] Allergy Hives Verified 06/01/17 11:59 Penicillins Allergy Hives Verified 06/01/17 11:59 red dye Allergy Hives Verified 06/01/17 11:59 Certification: Further, I certify that my clinical findings support that this patient is homebound (i.e. absences from home require considerable and taxing effort and are for medical reasons or mu-ism services or infrequently or short duration when for other reasons) because: Homebound Reason: Post-surgery restriction and or conditions limit ability to leave home Attestation: My signature below is to certify that this patient is under my care and that I, or nurse practitioner, or a physician's surgical services assistant working with me, has a face-to -face encounter with this patient.
--- NOTE | 2017-06-05 16:13 | Event Note ---
Date of Encounter: 06/05/17 Time of Encounter: 12:45 PCR- POD#4 L TSR reverse Johan 06/01/17 PCR - Patient seen at bedside. Pain control: Adequate, he is feeling much better today Participating in PT. All questions and concerns addressed. Educated on use of incentive spirometer, ambulation, and hydration. Patient educated on post-operative restrictions and care. Addressed: Patient had vasovagal episode 06/02/17 with syncope requiring rapid response team. He subsequently had emesis with coffee ground appearance that was positive for occult blood. Hospitalist and GI consulted. EGD showed reflux. he did have fever yesterday so hospitalist kept overnight. No fever today D/C plan: Home with today
== END 2017-06-05 15:35 | disposition home or self-care (01) | DRG 483 ==
LOC: SAMDAY 11:19 → 3NENU 18:24
PROVIDERS: ADMIT Orthopaedic Surgery; ATTEND Orthopaedic Surgery
PROC: ENDOEBX (2017-06-03 14:00)